=== PATIENT | male | born 1945 ===

== ENCOUNTER → 2018-12-24 20:03 | Outpatient (REF) | payer MEDICARE, SELFPAY ==
[2018-12-24 20:40] LABS: Add Manual Diff / Slide Review NO; Basophils Absolute Auto 0 /uL (0-100); Basophils Percent Auto 0.8 % (0-2); Eosinophils Absolute Auto 100 /uL (0-450); Eosinophils Percent Auto 3.2 % (2-4); Hematocrit 45.8 % (41-53); Hemoglobin 15.3 g/dL (13.5-17.5); Lymphocytes Absolute Auto 1400 /uL (1100-4500); Lymphocytes Percent Auto 32.3 % (25-40); Mean Corpuscular HGB Conc 33.5 % (30-36); Mean Corpuscular Hemoglobin 31.4 PG (26-34); Mean Corpuscular Volume 93.8 fL (80-100); Monocytes Absolute Auto 300 /uL (0-900); Monocytes Percent Auto 8.1 % (3-14); Neutrophils Absolute Auto 2300 /uL (1500-7000); Neutrophils Percent Auto 55.6 % (50-75); Platelet Count 193 X10^3/uL (150-400); Red Blood Cell Count 4.89 X10^6/uL (4.5-5.9); Red Cell Distribution Width 13.5 % (11.6-14.8); White Blood Cell Count 4.2 X10^3/uL (4.5-11.0)
[2018-12-24 21:13] LABS: Alanine Aminotransferase 45 IU/L (21-72); Albumin 3.9 g/dL (3.5-5.0); Albumin Globulin Ratio 1.3 (1.0-2.8); Alkaline Phosphatase 73 U/L (38-126); Aspartate Aminotransferase 38 IU/L (17-59); Bilirubin Total 0.6 mg/dL (0.2-1.3); Blood Urea Nitrogen 17 mg/dL (9-20); Calcium 9.4 mg/dL (8.4-10.2); Carbon Dioxide 27 mmol/L (22-32); Chloride 105 mmol/L (98-107); Cholesterol 181 mg/dL (140-199); Estimated Glomerular Filt Rate > 60.0 mL/min (>60); Globulin 2.9 g/dL (1.7-4.1); Glucose 95 mg/dL (80-110); HDL Cholesterol 47 mg/dL (40-60); HEMOLYSIS < 15 (0-50); LDL Cholesterol Calculated 108 mg/dL (<100); Potassium 4.6 mmol/L (3.4-5.1); Sodium 139 mmol/L (137-145); Total Protein 6.8 g/dL (6.3-8.2); Triglycerides 129 mg/dL (35-150)
[2018-12-24 21:41] LABS: Prostate Specific Antigen 0.986 ng/mL (0.10-4.00)
== END ==
LOC: LAB 20:03
PROVIDERS: Visit Provider Family Medicine Geriatric Medicine
DX: I35.0 Nonrheumatic aortic (valve) stenosis (principal); I65.29 Occlusion and stenosis of unspecified carotid artery; Z00.00 Encounter for general adult medical examination without abnormal findings; Z12.5 Encounter for screening for malignant neoplasm of prostate; Z13.220 Encounter for screening for lipoid disorders
CPT/HCPCS: 36415; 80053; 80061; 84153; 85025